=== PATIENT | male | born 1960 | race Caucasian/White ===

== ENCOUNTER 2021-08-25 10:47 | Outpatient (CLI) | payer OTHER, SELFPAY ==
--- NOTE | ~2021-08-25 | XR_ITS ---
XR hip LT min 2V DATE: 08/25/2021 11:10 INDICATION: Chronic left hip pain TECHNIQUE: AP and lateral views COMPARISON: None FINDINGS: Bone detail is limited due to morbid obesity. No apparent fracture or dislocation, avascular necrosis or bone destruction is detected. Alignment is intact at the pubic symphysis and sacroiliac joints. Prominent degenerative disc disease at L4-5 and L5-S1. IMPRESSION: Limited examination Prominent degenerative disc disease at L4-5 and L5-S1 Reviewed, dictated and finalized at location A.
[2021-08-25 20:23] LABS: Hematocrit 45.4 % (42.0-52.0); Hemoglobin 14.6 g/dL (14.0-18.0); Mean Corpuscular HGB Conc 32.2 g/dl (32-36); Mean Corpuscular Hemoglobin 33.6 pg (26-34); Mean Corpuscular Volume 104.6 fl (80-100); Mean Platelet Volume 10.3 fl (7.4-10.4); Platelet Count Result 155 k/mm3 (150-375); Red Blood Count 4.34 M/mm3 (4.6-6.20); Red Cell Distribution Width 15.9 % (11.5-14.5); White Blood Count 5.4 K/mm3 (4.5-10.0)
[2021-08-25 21:00] LABS: Thyroid Stimulating Hormone Reflex 0.731 uIU/mL (0.465-4.68)
[2021-08-25 21:01] LABS: Prostate Specific Antigen 0.2 ng/mL (< OR = 4.0)
[2021-08-25 21:23] LABS: Alanine Aminotransferase 87 U/L (4-50); Alkaline Phosphatase 157 U/L (38-126); Anion Gap 2 mmol/L (8-16); Aspartate Amino Transferase 161 U/L (17-59); Bilirubin,Total 1.6 mg/dL (0.2-1.3); Blood Urea Nitrogen 13 mg/dL (9-20); Calcium 8.7 mg/dL (8.4-10.2); Carbon Dioxide 32 mmol/L (22-30); Chloride 106 mmol/L (98-107); Cholesterol 174 mg/dL (0-200); Estimated Glomerular Filt Rate > 60; Glucose 123 mg/dL (65-110); HDL Direct 50 mg/dL; Potassium 4.5 mmol/L (3.4-5.0); Sodium 140 mmol/L (137-145); Triglycerides 111 mg/dL (<150)
[2021-08-25 21:34] LABS: LDL Cholesterol Direct 57 mg/dL
[2021-08-25 22:19] LABS: Hemoglobin A1C 4.9 % (<5.7)
[2021-08-31 17:09] LABS: Testosterone Free 17.3 pg/mL (35.0-155.0); Testosterone Total 231 ng/dL (250-1100)
== END 2021-08-25 10:48 | disposition home or self-care (01) ==
LOC: ANHBWCLAB 10:48
PROVIDERS: PCP Family Medicine; Visit Provider Family Medicine
DX: Z00.00 Encounter for general adult medical examination without abnormal findings (principal); E66.9 Obesity, unspecified; N52.9 Male erectile dysfunction, unspecified; R68.82 Decreased libido; M25.559 Pain in unspecified hip; M51.37 Other intervertebral disc degeneration, lumbosacral region
CPT/HCPCS: 36415; 73502; 80053; 80061; 83036; 84153; 84402; 84403; 84443; 85027; G0103

== ENCOUNTER 2021-09-22 08:28 | Outpatient (CLI) | payer OTHER, SELFPAY ==
[2021-09-22 19:02] LABS: Iron 81 ug/dL (49-181)
[2021-09-22 19:06] LABS: Alanine Aminotransferase 105 U/L (4-50); Alkaline Phosphatase 156 U/L (38-126); Aspartate Amino Transferase 176 U/L (17-59); Bilirubin,Total 1.5 mg/dL (0.2-1.3)
[2021-09-22 19:19] LABS: Percent Iron Saturation 24 % (20-50)
[2021-09-22 19:30] LABS: Hepatitis B Surface Antigen Negative (Negative)
[2021-09-22 19:36] LABS: HAV RESULT Negative (Negative); Hepatitis B Core IgM Result Negative (Negative)
[2021-09-22 19:49] LABS: Hepatitis C Virus Antibody Reactive (Negative)
[2021-09-25 13:53] LABS: Testosterone Free 16.5 pg/mL (35.0-155.0); Testosterone Total 223 ng/dL (250-1100)
[2021-09-26 15:05] LABS: Hepatitis C RNA, Quant PCR 1050000 IU/mL
== END 2021-09-22 08:29 | disposition home or self-care (01) ==
PROVIDERS: PCP Family Medicine; Visit Provider Family Medicine
DX: E66.9 Obesity, unspecified (principal); R17 Unspecified jaundice; R79.89 Other specified abnormal findings of blood chemistry; R68.82 Decreased libido
CPT/HCPCS: 36415; 80074; 80076; 83540; 83550; 84402; 84403; 87522

== ENCOUNTER 2021-10-13 08:29 | Outpatient (CLI) | payer OTHER, SELFPAY ==
--- NOTE | ~2021-10-13 | US_ITS ---
US abdomen limited INDICATION: Elevated lab functions PROCEDURE: Realtime right upper abdominal ultrasound. COMPARISON: No prior studies for comparison. FINDINGS: The pancreas is normal without focal mass or pancreatic ductal dilation. Liver echotexture is diffusely increased, consistent with fatty infiltration. There is a nodular appearance to the simran er surface, suspicious for cirrhosis. There is normal directional flow in the portal vein. The gallbladder is normal without stones, gallbladder wall thickening or pericholecystic fluid. Comm on bile duct measures 5.6 mm. No sonographic Valadez's sign. IMPRESSION: 1: Cholelithiasis. 2: Hepatic steatosis with possible underlying cirrhosis. Reviewed, dictated and finalized at location A.
== END 2021-10-13 08:30 | disposition home or self-care (01) ==
PROVIDERS: PCP Family Medicine; Visit Provider Family Medicine
DX: R07.89 Other chest pain (principal); K80.20 Calculus of gallbladder without cholecystitis without obstruction; K76.0 Fatty (change of) liver, not elsewhere classified
CPT/HCPCS: 76705

== ENCOUNTER 2021-10-22 08:46 | Outpatient (CLI) | payer OTHER, SELFPAY ==
[2021-10-22 19:01] LABS: Hematocrit 45.3 % (42.0-52.0); Hemoglobin 14.6 g/dL (14.0-18.0); Mean Corpuscular HGB Conc 32.2 g/dl (32-36); Mean Corpuscular Hemoglobin 34.3 pg (26-34); Mean Corpuscular Volume 106.3 fl (80-100); Mean Platelet Volume 10.1 fl (7.4-10.4); Platelet Count Result 156 k/mm3 (150-375); Red Blood Count 4.26 M/mm3 (4.6-6.20); Red Cell Distribution Width 16.6 % (11.5-14.5)
[2021-10-22 19:24] LABS: Alanine Aminotransferase 118 U/L (6-50); Alkaline Phosphatase 149 U/L (38-126); Anion Gap 2 mmol/L (8-16); Aspartate Amino Transferase 180 U/L (17-59); Bilirubin,Total 1.8 mg/dL (0.2-1.3); Blood Urea Nitrogen 12 mg/dL (9-20); Calcium 8.5 mg/dL (8.4-10.2); Carbon Dioxide 30 mmol/L (22-30); Chloride 106 mmol/L (98-107); Estimated Glomerular Filt Rate > 60; Glucose 94 mg/dL (65-110); Potassium 4.5 mmol/L (3.4-5.0); Sodium 138 mmol/L (137-145)
== END 2021-10-22 08:47 | disposition home or self-care (01) ==
PROVIDERS: PCP Family Medicine; Visit Provider Family Medicine
DX: R25.2 Cramp and spasm (principal)
CPT/HCPCS: 36415; 80053; 85027

== ENCOUNTER 2021-10-29 11:54 | Outpatient (CLI) | payer OTHER, SELFPAY ==
[2021-10-29 20:25] LABS: INR 1.2; Prothrombin Time 15.1 Seconds (11.1-14.7)
[2021-10-29 20:27] LABS: Iron 144 ug/dL (49-181)
[2021-10-29 20:41] LABS: Percent Iron Saturation 36 % (20-50)
[2021-10-31 10:56] LABS: Alpha-1-Antitrypsin, QN 151 mg/dL (83-199); Ceruloplasmin 29 mg/dL (18-36)
[2021-10-31 15:24] LABS: Hepatitis C Viral RNA PCR 2190000 IU/mL
[2021-10-31 17:01] LABS: GGT 87 U/L (3-70)
[2021-10-31 23:08] LABS: Actin Antibody (IgG) <20 U (<20)
[2021-11-01 15:44] LABS: ANA Cascade Screen Negative (Negative)
[2021-11-02 12:59] LABS: Mitochondrial (M2) Ab (IgG) <=20.0 U (<=20.0)
[2021-11-02 13:04] LABS: LKM 1 Antibody <=20.0 U (<=20.0)
[2021-11-02 18:41] LABS: HCV Genotype, LiPA 1a
[2021-11-03 17:37] LABS: Alpha Fetoprotein Tumor Marker 6.6 ng/mL (<6.1)
[2021-11-04 14:52] LABS: Hepatitis A Antibody Total Nonreactive (Nonreactive)
== END 2021-10-29 11:55 | disposition home or self-care (01) ==
PROVIDERS: PCP Family Medicine; Visit Provider Nurse Practitioner Family
DX: B19.20 Unspecified viral hepatitis C without hepatic coma (principal); K74.60 Unspecified cirrhosis of liver
CPT/HCPCS: 36415; 82103; 82105; 82390; 82728; 82977; 83516; 83520; 83540; 83550; 85610; 86038; 86376; 86708; 87522

== ENCOUNTER 2021-11-03 08:18 | Outpatient (CLI) | payer OTHER, SELFPAY ==
[2021-11-03 21:11] LABS: Hepatitis B Surface Anti Res Negative
[2021-11-10 07:58] LABS: ALT 92 U/L (9-46); Alpha-2-Macroglobulin 309 mg/dL (106-279); Apolipoprotein A1 122 mg/dL (94-176); Fibrosis Score 0.96; Fibrosis Stage F4; GGT 91 U/L (3-70); Haptoglobin <8 mg/dL (43-212); Necroinflammat Act Grade A3; Total Bilirubin 1.4 mg/dL (0.2-1.2)
== END 2021-11-03 08:19 | disposition home or self-care (01) ==
PROVIDERS: PCP Family Medicine; Visit Provider Nurse Practitioner Family
DX: K74.60 Unspecified cirrhosis of liver (principal)
CPT/HCPCS: 36415; 81596; 86706

== ENCOUNTER 2021-12-17 11:58 | Outpatient (CLI) | payer OTHER, SELFPAY ==
[2021-12-17 20:09] LABS: HIV 1/2 Ab P24 Ag Result Negative (Negative)
== END 2021-12-17 11:59 | disposition home or self-care (01) ==
LOC: ANHBWCLAB 11:58
PROVIDERS: PCP Family Medicine; Visit Provider Nurse Practitioner
DX: B19.20 Unspecified viral hepatitis C without hepatic coma (principal)
CPT/HCPCS: 36415; 86703; G0432

== ENCOUNTER 2021-12-18 10:47 | Outpatient (CLI) | payer OTHER, SELFPAY ==
--- NOTE | ~2021-12-18 | MR_ITS ---
EXAMINATION: MR abdomen wo/w con DATE: 12/18/2021 12:17 INDICATION: Cirrhosis of the liver. Elevated alpha-fetoprotein. TECHNIQUE: Magnetic resonance imaging (MRI) of the abdomen was performed without and with 20 mL Multi Jesu intravenous contrast. COMPARISON: Ultrasound 10/13/2021 FINDINGS: The liver demonstrates surface nodularity, consistent with cirrhosis. In segment VIII, there is a 18 mm mass of mildly increased T2-weighted signal intensity. In segment IVb, there is an 18 mm mass of a rterial hyperenhancement without washout. In segment II, there is a 2.3 cm mass with arterial hyperen hancement without washout. In segment VIII, there is a 13 mm mass of hyperenhancement without washout . There is a gallstone in the gallbladder, which is normal in size. The spleen, pancreas, adrenal gla nds, and kidneys are normal. There are no dilated loops of bowel. There is a paraumbilical portacaval shunt. There are varices around the spleen. There are no pathologically enlarged lymph nodes. There is trace ascites. IMPRESSION: 1. LI-RADS category LR-4: Probably hepatocellular carcinoma. Reviewed, dictated and finalized at location A.
[2021-12-18 11:42] LABS: Estimated Glomerular Filt Rate > 60
== END 2021-12-18 10:48 | disposition home or self-care (01) ==
PROVIDERS: PCP Family Medicine; Visit Provider Nurse Practitioner Family
DX: K74.60 Unspecified cirrhosis of liver (principal); R77.2 Abnormality of alphafetoprotein; R93.89 Abnormal findings on diagnostic imaging of other specified body structures
CPT/HCPCS: 74183; A9577

== ENCOUNTER 2021-12-31 01:17 | Day surgery (SDC) | payer OTHER, SELFPAY ==
[2021-12-15 14:08] VITALS: BMI 44.4
--- NOTE | 2021-12-30 15:20 | P.PNAN_ITS ---
Anes - Initial Pre Proc Eval Procedure: Operation Date: 12/31/21 10:45 Proposed Procedures p Esophagogastroduodenoscopy - Severino Sutton MD Date/Time: 12/30/21 15:20 Surgeon: Severino Sutton MD Pre Op Diagnosis: cirrhosis Patient Data Age: 61 Gender: M Height: 1.75 m Weight: 136.5 kg Allergies Allergy/AdvReac Type Severity Reaction Status Date / Time No Known Allergies Allergy Verified 12/31/21 09:22 Home Medications Medication Instructions Recorded Confirmed Type albuterol sulfate 90 mcg/actuation 1 puff inhalation Q4H PRN 08/18/21 12/31/21 Rx aerosol inhaler shortness of breath or wheezing #8.5 grams sildenafil 100 mg tablet (Viagra) 100 mg PO DAILY PRN sexual 09/22/21 12/15/21 Rx activity #20 tabs fluticasone furoate 200 1 inh inhalation DAILY #60 ea 11/03/21 12/15/21 Rx mcg-vilanterol 25 mcg/dose inhalation powder (Breo Ellipta) ropinirole 0.25 mg tablet 0.25 mg PO QHS #90 tabs 11/30/21 12/15/21 Rx ledipasvir 90 mg-sofosbuvir 400 mg 1 tablet PO DAILY 12 weeks #84 tabs 12/30/21 Rx tablet (Harvoni) Patient hx anesthesia problems: none Family hx anesthesia problems: none Results Review: All pre-operative results and documents have been reviewed as part of the pre- operative evaluation. [facility] Past Medical History Medical History Abnormal CT scan Arthritis Cirrhosis COPD (chronic obstructive pulmonary disease) Elevated bilirubin Elevated LFTs Elevated serum alpha-fetoprotein level Hepatitis C Morbid obesity with BMI of 40.0-44.9, adult Smoker Family History Family History Mother Diabetes mellitus Hypertension Cerebrovascular accident Father Depression Parkinson's disease Social History Social History Smoking packs per day: 1 Smoking cigarettes per day: 20.0 Years smoked: 28 Smoking pack-years: 28.00 Smoking status: Current every day smoker Tobacco type: cigarettes Alcohol intake: never Substance use: current Substance use type: marijuana Last use: occasionally Living arrangements: with family Additional occupation/education comments: [employer] Gender identity (if verbalized by the patient): Male Spiritual care concerns: No Agree to blood products: Yes Anes - Eval Final PreProcedure Day of Procedure 12/30/21 15:20 Patient weight: morbidly obese Heart: regular rate and rhythm Lungs: clear to auscultation and normal air movement Airway: Mallampati scale class II Neurological: alert and oriented Last oral intake: >/= 8 hours ASA classification: IV Emergent: no Anesthetic plan: proceed Anesthesia type and monitoring: general GIVS Results Review: All pre-operative results and documents have been reviewed as part of the pre- operative evaluation. Informed Consent: The patient's anesthetic plan and its attendant risks and benefits were discussed with the patient/family/POA. Questions were solicited and answers provided to the satisfaction of the patient/family/POA.
[2021-12-31 09:23] VITALS: BP 145/69; PULSE 70; RESP 20; TEMP 36.9; O2SAT 93
[2021-12-31] MEDS: LACTATED RINGERS 1,000 ML 150 ML IV CONT (09:36)
--- NOTE | 2021-12-31 10:14 | WPDHPUPDATE1 ---
History and Physical Update Update Date/Time: 12/31/21 10:14 History and Physical has been reviewed, including an updated exam of the patient. There are NO changes in the patient's condition. Risks, benefits, and alternatives have been discussed and questions answered. Patient agrees to proceed with procedure.
[2021-12-31 10:25] VITALS: BP 143/73; PULSE 78; RESP 18; O2SAT 94
[2021-12-31 10:35] VITALS: BP 140/73; PULSE 74; RESP 16; O2SAT 95
[2021-12-31 10:45] VITALS: BP 135/70; PULSE 68; RESP 20; O2SAT 94
== END 2021-12-31 10:51 | disposition home or self-care (01) ==
PROVIDERS: PCP Family Medicine; Visit Provider Internal Medicine Gastroenterology
PROC: 0DJ08ZZ Inspection of Upper Intestinal Tract, Via Natural or Artificial Opening Endoscopic (ICD-10-PCS; CPT 43235; principal; 2021-12-31 10:45)
DX: K74.60 Unspecified cirrhosis of liver (principal); K29.70 Gastritis, unspecified, without bleeding; B19.20 Unspecified viral hepatitis C without hepatic coma; R77.2 Abnormality of alphafetoprotein; R79.89 Other specified abnormal findings of blood chemistry; J44.9 Chronic obstructive pulmonary disease, unspecified; F17.210 Nicotine dependence, cigarettes, uncomplicated; F12.90 Cannabis use, unspecified, uncomplicated; E66.01 Morbid (severe) obesity due to excess calories; Z68.42 Body mass index [BMI] 45.0-49.9, adult; Z79.51 Long term (current) use of inhaled steroids
CPT/HCPCS: 43235; J2704; J7120

== ENCOUNTER 2022-03-02 16:00 | Outpatient (CLI) | payer OTHER, SELFPAY | END 2022-03-02 16:01 | disposition home or self-care (01) | LOC: ANHBWCLAB 16:01 | PROVIDERS: PCP Family Medicine; Visit Provider Family Medicine | DX: M79.89 Other specified soft tissue disorders (principal) | CPT/HCPCS: 36415; 85380 ==

== ENCOUNTER → 2022-03-03 11:19 | Outpatient (CLI) | payer SELFPAY ==
--- NOTE | ~2022-03-03 | US_ITS ---
EXAMINATION:US venous doppler LE LT INDICATION:Leg swelling TECHNIQUE: Multiple grayscale, color flow and Doppler images of the left lower extremity deep venous systems were obtained and reviewed. COMPARISON:No prior studies for comparison. FINDINGS: The common femoral, superficial femoral and popliteal veins demonstrate normal respiratory variation, augmentation and compressibility. Color flow is also seen within the posterior tibial, pe roneal, greater saphenous and profunda veins. IMPRESSION: 1: No lower extremity deep venous thrombosis. Reviewed, dictated and finalized at location A.
== END ==
PROVIDERS: PCP Family Medicine; Visit Provider Family Medicine
DX: R79.89 Other specified abnormal findings of blood chemistry (principal); M79.89 Other specified soft tissue disorders
CPT/HCPCS: 93971

== ENCOUNTER 2022-09-16 15:20 | Outpatient (CLI) | payer OTHER, SELFPAY ==
[2022-09-16 19:32] LABS: Basophils Absolute Auto 0.1 K/mm3 (0.0-0.1); Basophils Percent Auto 0.6 % (0.2-1.2); Eosinophils Absolute Auto 0.5 K/mm3 (0-0.3); Eosinophils Percent Auto 5.7 % (0-4.4); Hematocrit 37.2 % (42.0-52.0); Hemoglobin 13.1 g/dL (14.0-18.0); Immature Granulocyte Absolute 0.04 K/mm3 (0.00-0.031); Immature Granulocyte Percent A 0.4 % (0-0.5); Lymphocytes Absolute Auto 1.71 K/mm3 (0.9-3.2); Lymphocytes Percent Auto 17.9 % (18.3-44.2); Mean Corpuscular HGB Conc 35.2 g/dl (32-36); Mean Corpuscular Hemoglobin 37.9 pg (26-34); Mean Corpuscular Volume 107.5 fl (80-100); Mean Platelet Volume 9.4 fl (7.4-10.4); Monocytes Absolute Auto 1.6 K/mm3 (0.1-0.6); Monocytes Percent Auto 16.2 % (2.6-8.5); Neutrophils Absolute Auto 5.7 K/mm3 (1.3-6.7); Neutrophils Percent Auto 59.2 % (45.5-73.1); Platelet Count Result 132 k/mm3 (150-375); Red Blood Count 3.46 M/mm3 (4.6-6.20); Red Cell Distribution Width 18.6 % (11.5-14.5); White Blood Count 9.6 K/mm3 (4.5-10.0)
[2022-09-16 19:55] LABS: LDL Cholesterol Direct 64 mg/dL
[2022-09-16 20:02] LABS: Alanine Aminotransferase 85 U/L (6-50); Albumin Level 2.5 g/dL (3.5-5.1); Alkaline Phosphatase 132 U/L (38-126); Anion Gap 1 mmol/L (8-16); Aspartate Amino Transferase 165 U/L (17-59); Bilirubin,Total 7.6 mg/dL (0.2-1.3); Blood Urea Nitrogen 13 mg/dL (9-20); Calcium 7.9 mg/dL (8.4-10.2); Carbon Dioxide 35 mmol/L (22-30); Chloride 93 mmol/L (98-107); Cholesterol 134 mg/dL (0-200); Estimated Glomerular Filt Rate > 60; Glucose 120 mg/dL (65-110); HDL Direct 15 mg/dL; Potassium 4.2 mmol/L (3.4-5.0); Sodium 129 mmol/L (137-145); Triglycerides 79 mg/dL (<150)
[2022-09-16 20:15] LABS: Prostate Specific Antigen 0.2 ng/mL (< OR = 4.0)
[2022-09-16 21:23] LABS: Anisocytosis 2+ (NORMAL); Schistocytes None Seen (NORMAL)
[2022-09-16 21:24] LABS: Macrocytosis 1+ (NORMAL)
== END 2022-09-16 15:21 | disposition home or self-care (01) ==
LOC: ANHBWCLAB 15:21
PROVIDERS: PCP Family Medicine; Visit Provider Nurse Practitioner Family
DX: Z00.00 Encounter for general adult medical examination without abnormal findings (principal); Z12.5 Encounter for screening for malignant neoplasm of prostate
CPT/HCPCS: 36415; 80053; 80061; 84153; 85025; G0103